=== PATIENT | male | born 2000 | race Caucasian/White ===

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

== ENCOUNTER 2024-05-25 20:00 | Emergency (ER) | payer OTHER, SELFPAY ==
[2024-05-25 20:01] VITALS: BP 130/66; PULSE 78; RESP 16; TEMP 36.6; O2SAT 100; BMI 22.2
[2024-05-25] MEDS: Acetaminophen 500 MG Tablet 1000 MG PO (20:32)
--- NOTE | 2024-05-25 20:51 | EDS_ITS ---
HPI <SAMM Guzman - Last Filed: 05/25/24 21:12> History of Present Illness Chief Complaint: Occup Expose Narrative Narrative: Patient is a 24-year-old male with no significant ankle history presents to the emergency department for concern of carbon monoxide poisoning. Patient states he works from 7 AM to 3 PM. 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 Patient did have a fan however it was not working properly. Patient states multiple people in the area did feel sick from the fumes. Patient states he got off work at 3 PM, went home and took a nap. When he woke up, he felt nauseous and still had a headache. He is here as a workers comp. He denies any significant shortness of breath. States the biggest complaint is a headache. PFSH <SAMM Guzman - Last Filed: 05/25/24 21:12> [facility] Medical History (Updated 05/25/24 @ 21:[address] Francisco Agudelo MD) Diarrhea Abdominal pain GERD (gastroesophageal reflux disease) Allergy/AdvReac Type Severity Reaction Status Date / Time No Known Allergies Allergy Verified 05/25/24 20:05 Family History Mother History of parotid cancer Gastric ulcer Surgical History History of tonsillectomy and adenoidectomy Social History Smoking Status: Former smoker alcohol intake: never ROS <SAMM Guzman - Last Filed: 05/25/24 21:12> ROS ED ROS Narrative Constitutional: Negative for fever, chills, weight loss, weakness Eyes: Negative for vision loss, vision change, double vision ENT: Negative for any sore throat, ear pain, congestion Cardiovascular: Negative for any chest pain, tightness, palpitations Respiratory: Negative for any cough, sputum production, hemoptysis, dyspnea, dyspnea on exertion, orthopnea Gastrointestinal: Negative for any abdominal pain, vomiting, diarrhea, constipation, blood in stool, blood in vomit. Positive for nausea : Negative for any urinary frequency, dysuria, retention, blood in urine Muscle skeletal: Negative for any neck pain, back pain Neurological: Negative for any syncope, dizziness. Positive for headache Skin: Negative for any rashes, itching, abrasions, lacerations Psychiatric: Negative for any depression, anxiety, stress, suicidal ideation, homicidal ideation Hematologic: Negative for any excessive bruising, easy bleeding EXAM <SAMM Guzman - Last Filed: 05/25/24 21:12> Physical Exam Narrative Exam Narrative: Vital signs reviewed. HEET: Head normocephalic atraumatic, TMs clear bilaterally. Posterior pharynx is clear, moist mucous membranes. Nares clear bilaterally. Neck: Supple with no lymphadenopathy or tenderness. No signs of meningismus. Cardiac: Regular rate and rhythm no murmurs gallops or rubs, equal peripheral pulses bilaterally. Respiratory: Lungs clear to auscultation bilaterally. No chest tenderness. Abdomen: Soft, nontender, nondistended. No abdominal bruit or pulsatile masses. No hepatosplenomegaly Extremities: No peripheral edema, no signs of gross trauma or deformity. Active full range of motion of all extremities. Neuro: Cranial nerves II through XII intact, no focal neurological deficits. Neuroexam was unremarkable Skin: Clean dry and intact with no rash, purpura, petechiae, vesicles or pustules. Backs/flank: No CVA tenderness, no midline spinal tenderness, no deformity. Psych: Normal mood and affect. No SI, HI or acute psychosis. Const Vital Signs: 05/25/24 20:01 05/25/24 20:07 05/25/24 22:00 Temperature 97.9 F Temperature Source Temporal Pulse Rate 78 88 Respiratory Rate 16 16 Respiratory Effort Normal Respiratory Pattern Normal Blood Pressure 130/66 H 126/78 H Blood Pressure Mean 87 94 Pulse Ox 100 97 Oxygen Delivery Method Non-Rebreather Positive well nourished and well developed General Appearance ED: well developed <Dr. Francisco Agudelo MD - Last Filed: 05/25/24 22:28> Physical Exam Const Vital Signs: 05/25/24 20:01 05/25/24 20:07 05/25/24 22:00 Temperature 97.9 F Temperature Source Temporal Pulse Rate 78 88 Respiratory Rate 16 16 Respiratory Effort Normal Respiratory Pattern Normal Blood Pressure 130/66 H 126/78 H Blood Pressure Mean 87 94 Pulse Ox 100 97 Oxygen Delivery Method Non-Rebreather MDM <SAMM Guzman - Last Filed: 05/25/24 21:12> [facility] ABG Data ABG results: ABG 05/25/24 20:51 VBG Carboxyhemoglobin 12.1 H* Treatment and Re-Evaluation :: Differential diagnosis includes however is not limited to: Carbon monoxide poisoning, community-acquired pneumonia, COVID-19, influenza, RSV, asthma Patient appears generally well, vital signs are stable, patient is nontoxic- appearing. Presenting to the emergency department for complaints of shortness of breath, headache, feeling of nausea, concern for carbon monoxide poisoning secondary to being at work indoors using a gas powered saw. Patient will receive a carboxyhemoglobin level, patient given oral Tylenol. Patient remained stable. In no obvious distress. Patient's carboxyhemoglobin was 12.1, the normal high is 1.5. Patient was placed on a nonrebreather. At this time, patient's physical examination is unremarkable. He is acting well, acting himself per his parents. Patient will likely be on the nonrebreather for 1 hour, then be discharged home. This is a workers comp visit, patient will be able to return to work. <Dr. Frnacisco Agudelo MD - Last Filed: 05/25/24 22:28> [facility] Narrative Medical decision making narrative: I have personally performed a face to face assessment of the patient and have reviewed the JAN Note. I performed a substantive portion of the visit including all aspects of the following. 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 He believes he may have car monoxide exposure. Said he had a headache felt nauseated. No family history of intracranial bleeds or aneurysms. Said he left work about 6 hours ago. He started to feel better. His headache is resolved. He denies any recent trauma. Is on no blood thinners. He said other members at work had similar symptoms. Exam is [24-year-old male no acute distress vital signs stable afebrile. Pulse ox on percent on room air no hypoxia. H EENT exam pupils round reactive to light. Extract motions are intact. Moist mucous membranes. Normal speech. No trauma. Neck nontender no meningismus. Able to touch chin to chest. No lymphadenopathy. Lungs clear to auscultation. Heart regular rhythm rate about 75 no murmur. Chest wall ribs nontender. Abdomen soft nontender. Moving all 4 extremities. 5-5 firer boiler strength. Dorsi plantarflexion intact. Normal range of motion. Nontender no edema. Back nontender. Skin unremarkable. No petechiae purpura. No rashes. Neurologically is awake alert. Answer questions following commands. NIH 0. No focal motor or sensory deficits. Acting appropriately. Parents present in room.] Medical Decision Making [carboxyhemoglobin levels 12.1. Will put the patient on some oxygen reassessing. His symptoms are resolving. He is in normal exam.] Other additions or changes: [ repeat exam patient doing well at 1025. Symptoms resolved. Neurologic exam normal. Exam and history consistent with carbon monoxide exposure. He is comfortable being discharged to home.] ABG Data ABG results: ABG 05/25/24 20:51 VBG Carboxyhemoglobin 12.1 H* Discharge Plan Triage Chief Complaint: Occup Expose ED Midlevel Provider: Huber Cronin ED Provider: Francisco Agudelo Dx/Rx/DC Orders Clinical Impression: Accidental exposure to carbon monoxide, Encounter related to worker's compensation claim Instructions: First Aid: Chemical Exposure Primary Care Provider: Care Physician,Lona Primary Referrals: Care Physician,Lona Primary [Primary Care Provider] - [facility] [Non-Staff] - Activity Restrictions/Additional Instructions: Please follow-up outpatient. Ensure that you work in a well ventilated area. Return for any worsening symptoms. Print Language: Malay Disposition Disposition: Home, Self Care
[2024-05-25 20:56] LABS: Carboxyhemoglobin Frac (CO) 12.1 % (0.0-1.5)
[2024-05-25 21:02] LABS: Carboxyhemoglobin Order 12.1
[2024-05-25 22:00] VITALS: BP 126/78; PULSE 88; RESP 16; O2SAT 97
[2024-05-25 22:28] VITALS: BP 133/75; PULSE 67; RESP 18; TEMP 36.1; O2SAT 98
== END 2024-05-25 22:29 | disposition home or self-care (01) ==
PROVIDERS: Nurse Practitioner; Emergency Provider Emergency Medicine; Visit Provider Emergency Medicine
DX: T58 Toxic effect of carbon monoxide (principal); R51.9 Headache, unspecified; Z87.891 Personal history of nicotine dependence; Y99.0 Civilian activity done for income or pay
CPT/HCPCS: 82375; 99282